=== PATIENT | female | born 1980 | race African-American/Black ===

== ENCOUNTER 2016-07-04 19:49 | Emergency (ER) | payer MEDICAID ==
[2016-07-04] MEDS ORDERED: ASPIRIN 81 MG CHEW TAB ONE (20:02)
== END 2016-07-05 00:39 | disposition home or self-care (01) ==
LOC: ER 19:49
DX: R07.89 Other chest pain (principal); I10 Essential (primary) hypertension
CPT/HCPCS: 36415; 71010; 80053; 82550; 83735; 84484; 84703; 85025; 85610; 85730; 93005